=== PATIENT | male | born 1980 | race American Indian/Alaskan Native ===

== ENCOUNTER 2017-04-20 15:56 | Emergency (ER) | payer OTHER ==
--- NOTE | 2017-04-20 16:24 | Emergency Department Report ---
HPI - General Time Seen by Provider: 04/20/17 16:17 - HPI HPI: This is a 36-year-old -[place] male presents to the emergency department by EMS from home and cardiac arrest. The only past medical history that we know of is that the patient is blind. He was pulseless and in cardiac arrest for about 45 minutes prior to presentation. He was in PEA, receiving chest compressions, getting respirations via Otis airway. He received 2 rounds of epinephrine, one of sodium bicarbonate. He had a blood sugar check of 75. He presented to us still pulseless and unresponsive, in asystole. ED Review of Systems ROS: Stated complaint: CARDIAC ARREST Other details as noted in HPI Comment: Unobtainable due to pts medical conditions Physical Exam - Physical Exam Physical Exam: GENERAL: Patient is ill-appearing and unresponsive. HENT: Normocephalic. Atraumatic. Patient has moist mucous membranes. EYES: Pupils do not react to light. NECK: Supple. Trachea is midline. CHEST/LUNGS: Clear to auscultation. There is no respiratory distress noted. HEART/CARDIOVASCULAR: Regular. There is no tachycardia. There is no murmur. ABDOMEN: Abdomen is soft. Obese habitus/midsection. SKIN: Skin is cool and dry.. NEURO: The patient is unresponsive to verbal or painful stimuli. He does not follow any commands. MUSCULOSKELETAL: There is no obvious deformity. There is no evidence of acute injury. ED Medical Decision Making - Medical Decision Making The patient presented in asystole after being down for about 45 minutes. He received 2 rounds of epinephrine, sodium bicarbonate. He had a Otis airway in place. The Otis airway was removed and the patient was intubated endotracheally. We continued chest compressions. He received bag valve ventilation. He was given another 4 rounds of epinephrine. Each rhythm and pulse check the patient was asystolic and pulseless. Eventually I took a bedside ultrasound and look at the heart and there was absolutely no movement, squeeze or fibrillation. At this point the patient had been pulseless and without perfusion for close to one hour in total. At this time time of was called. I later went and spoke with multiple family members and let them know of his expiration. - Differential Diagnosis MO, PE, CVA, Brain Bleed Critical Care Time: Yes Critical care time in (mins) excluding proc time.: 15 Critical care attestation.: If time is entered above; I have spent that time in minutes in the direct care of this critically ill patient, excluding procedure time. Critical care time spent on this patient and during his initial evaluation, supervision of ACLS protocol, discussion with the family. This does not include time spent for intubation. Critical Care Time: 15 minutes ED Disposition Clinical Impression: Cardiac arrest Respiratory failure Qualifiers: Chronicity: unspecified Respiratory failure complication: unspecified whether with hypoxia or hypercapnia Qualified Code(s): J96.90 - Respiratory failure, unspecified, unspecified whether with hypoxia or hypercapnia Disposition: DC-20 Is pt being admited?: No Condition: Stable Referrals: PRIMARY CARE, [Primary Care Provider] - 3-5 Days Time of Disposition: 18:16
== END 2017-04-20 17:40 ==
LOC: ED 15:56
DX: I46.9 Cardiac arrest, cause unspecified (principal); J96.90 Respiratory failure, unspecified, unspecified whether with hypoxia or hypercapnia
CPT/HCPCS: 92950; 99285